=== PATIENT | female | born 1995 | race Caucasian/White ===

== ENCOUNTER 2017-07-20 14:33 | Emergency (ER) | payer OTHER ==
[~2017-07-20] VITALS: Ht 165.1 cm; Wt 63.5 kg
[2017-07-20 14:40] VITALS: BP_SYST 131
--- NOTE | 2017-07-20 15:04 | NUR ---
Patient to ER bed 8 to gown for evaluation. Side rails up. Report received from QUINTON Abebe.
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
[2017-07-20] MEDS: IBUPROFEN 600 MG TABLET PO ONE (15:05)
--- NOTE | 2017-07-20 15:05 | NUR ---
ER Dr. Richards at bedside examining patient.
--- NOTE | 2017-07-20 15:06 | NUR ---
Medication was given, pt tolerated well. No adverse reaction, will continue to monitor.
--- NOTE | 2017-07-20 15:06 | NUR ---
Radiology at patient bedside, pt tolerated well.
[2017-07-20 15:52] VITALS: BP_SYST 127
--- NOTE | 2017-07-20 15:52 | NUR ---
Patient given written and verbal discharge instructions and verbalizes understanding. ER MD discussed with patient the results and treatment provided. Patient in stable condition. ID arm band removed. Rx of Motrin given. Patient educated on pain management and to follow up with PMD. Pain Scale 0. Opportunity for questions provided and answered.
== END 2017-07-20 15:52 | disposition home or self-care (01) ==
LOC: SED 14:33
DX: M25.531 Pain in right wrist (principal); M25.512 Pain in left shoulder; R51 Headache; V43.52XA Car driver injured in collision with other type car in traffic accident, initial encounter; Y93.89 Activity, other specified; Y92.488 Other paved roadways as the place of occurrence of the external cause; Y99.8 Other external cause status
CPT/HCPCS: 73030; 81025; 99284